=== PATIENT | female | born 1990 | race Two or more races ===

== ENCOUNTER 2023-07-23 17:37 | Emergency (ER) | payer OTHER ==
[~2023-07-23] VITALS: Ht 167.6 cm; Wt 77.1 kg
[2023-07-23] MEDS ORDERED: LOVENOX40 MG/0.4 SUBCUTANEO (17:47)
[2023-07-23 20:08] LABS: HEMATOCRIT 34.1 % (36.0-45.00); HEMOGLOBIN 11.9 g/dL (12.0-15.00); MEAN CELL VOLUME 82.1 fL (80.00-100.00); MEAN CORPUSCULAR HEMOGLOBIN 28.6 pg (27.00-32.0); MEAN CORPUSCULAR HGB CONC 34.8 g/dl (32.0-36.0); PLATELET COUNT 268 K/uL (150-450); RED BLOOD COUNT 4.15 M/uL (4.00-6.00); RED CELL DISTRIBUTION WIDTH 14.6 % (11.5-14.5)
== END 2023-07-23 21:03 | disposition home or self-care (01) ==
LOC: ER 17:38
PROVIDERS: General Practice
DX: J10.1 Influenza due to other identified influenza virus with other respiratory manifestations (principal); R05.8 Other specified cough; Z20.822 Contact with and (suspected) exposure to COVID-19